=== PATIENT | male | born 1940 | race Two or more races ===

== ENCOUNTER → 2017-05-04 | Outpatient (CLI) | payer MEDICARE ==
[~2017-05-04] MED LIST: ACET1TAB33 PO; ASPI-482 PO; CHOL500016 PO; CYCL10TA2 PO; EPIPEN0.3 MG/0.3 IJ; IOHEXOL 180 MG/ML 10 ML VIAL. ONE; LISI-334 PO; METF500T4 PO; MULT1TAB52 PO; PIOG30TA41 PO; methylPREDNISolone ACETATE 40 MG/ML VIAL. ONE; methylPREDNISolone ACETATE 80 MG/ML VIAL. ONE
--- NOTE | 2017-05-04 13:56 | PAIN ---
DATE OF SERVICE: 05/04/2017 CHIEF COMPLAINT: Low back and left lower extremity pain. HISTORY OF PRESENT ILLNESS: This is a 77-year-old male who presents with history of pain for about a month now in the low back and left leg. He has had pain on and off over the years, but it always went away, it got better with rest. At this time, it is not getting better. It has been bothering him for a good month. He did have increased pain in the low back, left leg, gluteus posterior thigh, posterior calf, lateral calf, medial lower leg into the ankle. The patient reports some numbness in the anterior thigh as well, but mostly on the left side. The patient reports it is radiating, throbbing, constant, changes during the day, worse with activity; standing, walking, change in position, even sitting for too long can aggravate it. It is better with lying down, although it does awake him from sleep about twice a night. He is able to reposition, get back to sleep. The patient reports that it affects his bowel and bladder control but without incontinence, and it does affect his ability to walk. He is not using any assistive device; however, he is limping, favoring his left lower extremity significantly. The patient has tried doing some stretching on his own, has not had any formal physical therapies, formal manager career or other treatments at this time. He did take some tramadol a few weeks ago, which was not significantly helpful for the pain. Otherwise, he does not have anything that has helped. The patient reports no significant pain in the right lower extremity, but significant pain on the left, no loss of motor function, but significant fatigability of the left leg compared to right with walking more than about 10-15 minutes. The patient rates his disability rate, 0 to 10 being the worst, as a 10 with family home responsibilities, recreation, social activity, occupation and sexual behavior; 9 with self care and life support activities. PAST MEDICAL HISTORY: Significant for hypertension, type 2 diabetes, hearing loss, difficulty urinating, arthritis. PREVIOUS SURGERIES: Include right rotator cuff repair and a subdural hematoma evacuation in the past. Also, laser surgery for the prostate. CURRENT MEDICATIONS: Include multivitamin, daily baby aspirin, Actos, metformin, lisinopril, acetaminophen and vitamin D3. ALLERGIES: No known drug allergies. FAMILY HISTORY: Significant for liver disease, high blood pressure and diabetes. SOCIAL HISTORY: The patient does not smoke. The patient takes alcohol only very occasionally and rarely. He is and lives with his spouse and has 1 son living at home. Lives locally in [place], [place] REVIEW OF SYSTEMS: The patient's review of systems is positive for those items mentioned in history of present illness. All systems were reviewed and otherwise negative. It is complete, full, well documented on patient's chart. PHYSICAL EXAMINATION: VITAL SIGNS: Today, his blood pressure 140/81, pulse is 54, respirations 20, temperature 98.0 degree Fahrenheit . Height is 5 feet 7 inches, weight 192 pounds. GENERAL; The patient is awake, alert, oriented, appropriate. Very pleasant in demeanor. HEENT: The patient's head is normocephalic, atraumatic. Extraocular movements are intact and symmetrical. Oral cavity, mucous membranes are moist and pink. Dentition is intact. NECK: Shows anterior throat supple without palpable lymphadenopathy noted. Swallow reflex is symmetrical. CHEST: Normal on inspection. Breath sounds are clear to auscultation bilaterally. HEART: S1, S2. Clear. ABDOMEN: Soft, nontender, nondistended. No palpable organomegaly is noted. No rebound or guarding demonstrated. BACK: Shows spine grossly midline. Normal-appearing thoracic kyphosis, cervical lordotic curvature and lumbar lordotic curvature. No previous bruises, lesions, rashes or scars are noted. Lumbar paraspinous musculature is symmetrical with inspection. On palpation, it shows some moderate tenderness with palpation throughout the upper, middle, and lower distribution of paraspinous muscles, slightly more in the lower lumbar distribution, more in the left than the right, but symmetrical. No evidence of atrophy, hypertrophy. No trigger points. No radiation of pain. The patient has good rotation of motion of lumbar spine, both laterally greater than 10 degrees right and left, as well as extension greater than 10 degrees, forward flexion 45 degrees without significant pain reported. No tenderness over the spinous processes, sacrum or sacroiliac region. Lower extremities show deep tendon reflexes 2+ in the patellar and 1+ in the talocalcaneal tendons and equal. Motor exam is strong with 5/5 dorsiflexion and extension, quadriceps, hamstring flexion, and are symmetrical and greater than 5/5. Peripheral pulses are 2+/2, posterior tibial and dorsalis pedis pulses. No peripheral edema is noted. No clubbing, no cyanosis. Lower extremities are warm and dry to touch, equal in color and appearance. Straight leg raise noted to be positive on the left at about 40-45 degrees but negative on the right. This is decreased with knee flexion on the left. Gaenslen's and Ashish's maneuvers are negative bilaterally. The patient is able to stand still on his toes, but has some slight difficulty including his balance with standing or with weight on his left leg. He is walking with a significant limp favoring left lower extremity as well. IMPRESSION: 1. This is a 77-year-old male with approximately 1 month history of increasing pain, low back, left lower extremity in a radicular fashion. 2. CT scan of lumbar spine showing vacuum disk phenomenon at L4-L5 with posterior disk osteophyte complex, marked severe bilateral facet arthrosis, neurocentral canal at 6 mm. Lateral recess narrowing present, moderate bilateral neural foraminal narrowing with effacement of the posterior and inferior surface of the exiting L4 nerve roots with degenerative disk changes and moderate spinal stenosis noted at L4-L5. 3. Type 2 diabetes. 4. Hypertension. 5. Arthritis. PLAN: Options were discussed with the patient and the patient's daughter who was present with him today including the conservative medical management, physical therapy and interventional techniques, and he likes to proceed with interventional techniques. We discussed a lumbar epidural steroid injection using description as well as anatomical models to describe the procedure and using [employer] mechanical specialist for [place] and [place], risks were then discussed including but not limited to bleeding, infection, possibility of epidural hematoma and subsequent neurological compromise, dural puncture, headaches, spinal cord and/or nerve damage, side effects to steroid medication and poor results regarding pain control. The patient understands and wished to proceed. The patient will return to clinic in approximately 2 weeks for followup. He was counseled as to return appointment, activity level, and side effects to be aware of. DIAGNOSES: Lumbar radiculopathy with lumbar degenerative disk disease, lumbar spinal stenosis. PROCEDURE: Lumbar epidural steroid injection in translaminar approach at the L4-5 level using C-arm fluoroscopic guidance and a sterile prep and drape using local anesthetic. MEDICATIONS INJECTED: Total of 120 mg Depo-Medrol plus total of 10 mL preservative-free normal saline and 2 mL of Isovue for contrast. CONDITION AT DISCHARGE: Stable. The patient tolerated the procedure well, had no complications. CARMEN MARCUM MD DR: ELYSE/river JOB#: [id number] / [id number]
== END | disposition home or self-care (01) ==
LOC: PNCL 07:30
PROVIDERS: ATTEND Anesthesiology
DX: M51.16 Intervertebral disc disorders with radiculopathy, lumbar region (principal); M19.91 Primary osteoarthritis, unspecified site; E11.9 Type 2 diabetes mellitus without complications; I10 Essential (primary) hypertension; H91.90 Unspecified hearing loss, unspecified ear; K76.9 Liver disease, unspecified; Z91.048 Other nonmedicinal substance allergy status
CPT/HCPCS: 62323; J1030; J1040

== ENCOUNTER → 2017-05-18 | Outpatient (CLI) | payer MEDICARE ==
--- NOTE | 2017-05-18 09:50 | PAIN ---
DATE OF SERVICE: 05/18/2017 DATE OF SERVICE: 05/18/2017 DIAGNOSES: Lumbar radiculopathy with lumbar spinal stenosis, lumbar degenerative disk disease. HISTORY OF PRESENT ILLNESS: The patient is a 77-year-old male who returns for followup status post lumbar epidural steroid injection x 1. The patient reports 2 days of near 100% improvement and about 50% improvement overall. Still the pain is returning now in the low back and left leg as it was, some numbness on the right side as well, which is new for him, but only in the lateral anterior thigh, also most of the pain is in the left posterior gluteus, lateral thigh, anterior thigh on the left, into the medial lower leg and some in the posterior ankle on the left side as well. The patient reports everything felt better for a short period of time, but the pain has returned again about 50% overall, still taking Tylenol No. 3 every 4 hours, which he reports he needs to keep the pain under control. The patient reports his pain as an 8 on a scale of 10 at its worst, 6 on average, is a 5 at its least and is a 5 today. The patient reports of tight shooting, cramping, radiating constant again more on the left leg with some on the the right with some numbness as well. The patient reports no new motor or sensory deficits, no new bowel or bladder incontinence or other complaints. PHYSICAL EXAMINATION: VITAL SIGNS: Today, the patient's blood pressure is 145/72, pulse 66, respirations are 16, temperature is 98.2 degrees Fahrenheit, weight is 190 pounds. GENERAL: The patient is awake, alert, oriented, appropriate, very pleasant demeanor. HEENT: Head shows normocephalic, atraumatic. Extraocular movements are intact and symmetrical. Oral cavity shows mucous membranes moist and pink. Dentition is intact. NECK: Shows anterior throat supple without palpable lymphadenopathy noted. Swallow reflex is symmetrical. CHEST: Shows normal on inspection. Breath sounds are clear to auscultation bilaterally. HEART: Shows S1 and S2 clear. No murmurs auscultated. ABDOMEN: Soft, nontender, nondistended. BACK: Shows spine grossly midline. Normal appearing thoracic kyphosis and lumbar lordotic curvature. Lumbar paraspinous muscle shows symmetrical with inspection, on palpation shows some moderate tenderness in the low lumbar distribution bilaterally without radiation. EXTREMITIES: Lower extremities showed deep tendon reflexes at 2+ in the patellar and 1+ tendo calcaneus tendons. Motor exam is strong with 5/5 dorsiflexion, extension, quadriceps and hamstring flexion and equal. Options were discussed with the patient. The patient's old chart was reviewed. Current medication regimen updated. Current review of systems updated today as well. We will proceed with a second lumbar epidural steroid injection today with fluoroscopic guidance. Risks were again discussed including, but not limited to bleeding, infection, possibility of epidural hematoma, subsequent neurologic compromise, dural puncture, headaches, spinal cord and/or nerve damage, side effects of steroid medication and poor results regarding pain control. The patient understands and wishes to proceed. The patient will return to clinic in approximately 2 weeks for followup. She was counseled on return appointment, activity level and side effects to be aware of. DIAGNOSIS: Lumbar radiculopathy with lumbar degenerative disk disease and lumbar spinal stenosis. PROCEDURE: Lumbar epidural steroid injection in translaminar approach L4-L5 level using C-arm fluoroscopic guidance under sterile prep and drape using local anesthetic. MEDICATIONS INJECTED: A total of 120 mg Depo-Medrol plus 10 mL of preservative-free normal saline and 2 mL of Isovue for contrast. CONDITION AT DISCHARGE: Stable. The patient tolerated procedure well, had no complications. CARMEN MARCUM MD DR: ELYSE/river JOB#: [id number] / [id number]
== END | disposition home or self-care (01) ==
LOC: PNCL 07:28
PROVIDERS: ATTEND Anesthesiology
DX: M51.16 Intervertebral disc disorders with radiculopathy, lumbar region (principal); M48.061 Spinal stenosis, lumbar region without neurogenic claudication; Z91.048 Other nonmedicinal substance allergy status
CPT/HCPCS: 62323; J1030; J1040

== ENCOUNTER → 2017-08-07 | Outpatient (CLI) | payer MEDICARE ==
[~2017-08-07] MED LIST changes: -ACET1TAB33 PO; -ASPI-482 PO; -CHOL500016 PO; -CYCL10TA2 PO; -EPIPEN0.3 MG/0.3 IJ; +IOHEXOL 180 MG/ML 10 ML VIAL.; -IOHEXOL 180 MG/ML 10 ML VIAL. ONE; -LISI-334 PO; -METF500T4 PO; -MULT1TAB52 PO; -PIOG30TA41 PO; +methylPREDNISolone ACETATE 40 MG/ML VIAL.; -methylPREDNISolone ACETATE 40 MG/ML VIAL. ONE; +methylPREDNISolone ACETATE 80 MG/ML VIAL.; -methylPREDNISolone ACETATE 80 MG/ML VIAL. ONE
== END | disposition home or self-care (01) ==
LOC: PNCL 08:39
DX: M51.16 Intervertebral disc disorders with radiculopathy, lumbar region (principal); M48.061 Spinal stenosis, lumbar region without neurogenic claudication; Z91.030 Bee allergy status
CPT/HCPCS: 62323; J1030; J1040